=== PATIENT | male | born 1990 | race Caucasian/White ===

== ENCOUNTER 2023-02-18 06:10 | Emergency (ER) | payer OTHER ==
[~2023-02-18] VITALS: Ht 165.1 cm; Wt 77.1 kg
[2023-02-18 06:13] VITALS: BP 149/83; PULSE 88; RESP 16; TEMP 97.4; O2SAT 98
[2023-02-18] MEDS ORDERED: KETOROLAC 60 MG/2 ML VIAL IM ONE (06:35)
[2023-02-18 06:58] VITALS: O2SAT 95
[2023-02-18 07:15] VITALS: BP 135/94; PULSE 79; RESP 20
[2023-02-18 08:32] VITALS: O2SAT 97
== END 2023-02-18 07:09 | disposition home or self-care (01) ==
LOC: MED 06:10
DX: M25.511 Pain in right shoulder (principal); V49.88XA Car occupant (driver) (passenger) injured in other specified transport accidents, initial encounter; Y93.89 Activity, other specified; Y92.89 Other specified places as the place of occurrence of the external cause; Y99.8 Other external cause status
CPT/HCPCS: 73000; 96372; 99283; J1885; Q0092